=== PATIENT | female | born 1990 | race Caucasian/White ===

== ENCOUNTER 2018-09-21 08:39 | Outpatient (CLI) | payer OTHER | END 2018-09-21 09:04 | disposition home or self-care (01) | LOC: LAB 08:39 | DX: N20.0 Calculus of kidney (principal); N30.00 Acute cystitis without hematuria ==

== ENCOUNTER 2018-09-28 12:06 | Outpatient (CLI) | payer OTHER | END 2018-09-28 16:13 | disposition home or self-care (01) | LOC: RAD 12:06 | DX: N20.0 Calculus of kidney (principal) ==

== ENCOUNTER 2018-09-30 05:35 | Inpatient (IN) | payer OTHER ==
[~2018-09-30] VITALS: Ht 165.1 cm; Wt 76.2 kg
== END 2018-10-02 10:12 | disposition home or self-care (01) | DRG 661 ==
LOC: CIR.AMB 05:35 → O/R 11:53 → SURH 11:53 → CIR.AMB 13:47 → SURH 10-02 10:12
PROVIDERS: Urology
PROC: BT1FZZZ Fluoroscopy of Left Kidney, Ureter and Bladder (ICD-10-PCS; 2018-09-30)
PROC: 0TC18ZZ Extirpation of Matter from Left Kidney, Via Natural or Artificial Opening Endoscopic (ICD-10-PCS; principal; 2018-09-30 07:00)
PROC: BT12ZZZ Fluoroscopy of Left Kidney (ICD-10-PCS; 2018-10-02)
DX: N20.0 Calculus of kidney (principal)